=== PATIENT | female | born 1985 ===

== ENCOUNTER → 2019-05-23 | Outpatient (REF) | payer OTHER | LOC: M LAB LCGH 09:26 | DX: N93.9 Abnormal uterine and vaginal bleeding, unspecified (principal); Z30.430 Encounter for insertion of intrauterine contraceptive device ==

== ENCOUNTER → 2019-09-12 | Outpatient (REF) | LOC: M LAB LCGH 19:54 | DX: Z87.42 Personal history of other diseases of the female genital tract (principal) ==